=== PATIENT | female | born 1990 | race Caucasian/White ===

== ENCOUNTER 2018-01-03 11:31 | Emergency (ER) | payer BC, OTHER ==
--- OUTSIDE RECORDS SUMMARY | 2018-01-03 12:07 | XMS REPORT ---
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 Payers Type Date Identification Numbers Payment Provider Subscriber Health Maintenance Policy Number: BCBS Ppo Roel Stephens Organization (O) [id number] PayID: [id number] [facility] [id number] [place] [id number] Problems Date Description Provider Status Onset: 03/08/2011 Acne Maryanne Aragon MD Active Onset: 12/20/2016 History of dysplasia of cervix Maryanne Aragon MD Active Onset: 12/20/2016 Allergic rhinitis Maryanne Aragon MD Active Onset: 05/11/2011 Cervical intraepithelial neoplasia Maryanne Aragon MD Resolved grade 2 Resolved: 12/20/2016 Family History Date Family Member(s) Problem(s) Comments Father No Current Problems Mother No Current Problems Social History Type Date Description Comments Marital Status Single Marital Status Significant Other Lives With Boyfriend Occupation Currently Working [employer], [employer] ETOH Use Occasionally consumes alcohol Smoking Patient has never smoked Recreational Drug Use Denies Drug Use Daily Caffeine Consumes on average 1 soda per day Exercise Type/Frequency Exercises regularly [employer] membership Currently Active Patient is currently sexually active Age [address] [place] 17 Years Old Allergies, Adverse Reactions, Alerts Date Description Reaction Status Severity Comments 09/13/2005 Amoxicillin active Medications Medication Date Status Form Strength Qnty SIG Indications Ordering Provider Fluticasone 12/20/ Active Suspension 50mcg/Act 1unit 1 spray J30.9 [place] Propionate 2017 s each Maryanne maxwell nostril twice daily Vitamin D 01/30/ Active Tablets 1000Unit 100ta 1/2 by E55.9 Merlin 2014 bs mouth every Maryanne maxwell, day Folic Acid 11/17/ Active Tablets 400mcg 90tab 1 by mouth Merlin 2015 s every day Maryanne maxwell MD Trinessa (28) 11/02/ Active Tablets 0.18/0.215 28tab 1 by mouth Z30.41 Merlin 2014 /0.25 s daily Maryanne maxwell mg-35 mcg Vitamin B-12 10/29/ Active Tablets Sub 1000mcg 1 po daily Merlin 2013 with meal Maryanne maxwell MD Fluticasone 07/21/ Hx Suspension 50mcg/Act 1unit 1 spray J30.9 Digiovann Propionate 2016 - s each a, 12/20/ nostril Emily, 2016 daily 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 Benzonatate 01/30/ Hx Capsules 200mg 30cap 1 by mouth 461.9 Digiovann 2015 - s every 8 a, 02/09/ hours as Emily, 2014 needed for 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 cough, may cause drowsiness Doxycycline 01/30/ Hx Tablets DR 100mg 20tab 1 by mouth 461.9 Digiovann Hyclate 2014 - s every 12 a, 02/09/ hours for Emily, 2014 10 days, 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 take with food but not milk Vitamin D3 11/17/ Hx Chewtabs 2000Unit 1 by mouth 268.9 Merlin 2015 - daily with Maryanne maxwell, 01/30/ mark anthonyal 2014 Hair/Skin/Jillian 11/17/ Hx Tablets Merlin ls 2015 - Maryanne maxwell, 11/30/ 2016 Tri-Sprintec 10/06/ Hx Tablets 28tab 1 po daily Merlin 2012 - s Maryanne maxwell, 11/17/ 2014 Afrin 12 Hour 00/00/ Hx Solution 0.05% every day Unknown 0000 - in nostrils 12/20/ at bedtime 2017 and once during daytime as needed Immunizations CPT Code Status Date Vaccine Reaction Lot # [id number] Given 08/24/2017 Tdap (Adacel) Ages 7 And GIVEN AT CONVENIENT CARE Above Only 97645 Given 05/11/2011 Menactra/Menveo Meningococcal Vaccine 87224 Given 10/05/2009 Tdap (Adacel) Ages 7 And Above Only 41176 Given 10/05/2009 Afluria Or Fluvirin Flu Vac Intramuscular 63053 Given 10/05/2009 Administration Swine Flu Vaccine H1N1 40737 Given 04/21/2009 Menactra/Menveo Meningococcal Vaccine 83577 Given 01/17/2008 HPV Vaccine (Gardasil) 3 Dose Schedule 07223 Given 09/11/2007 HPV Vaccine (Gardasil) 3 Dose Schedule 27334 Given 07/12/2007 HPV Vaccine (Gardasil) 3 Dose Schedule 00693 Given 05/03/2006 Tetanus And Diptheria Toxoids For Adult Use-preservative free 82739 Given 06/03/2003 Hepatitis B Vac Adolescent 2 Dose Schedule 05783 Given 12/06/2002 Hepatitis B Vac Adolescent 2 Dose Schedule 77566 Given 12/06/2002 Hepatitis B Vac Adolescent 2 Dose Schedule 27491 Given 06/11/2000 Hepatitis B Vac Adolescent 2 Dose Schedule 16679 Given 05/20/1996 IPV / Poliomyelitis Immunization 58843 Given 05/20/1996 DTaP Immunization 7 Yrs & Younger 37876 Given 05/20/1996 DTaP Immunization 7 Yrs & Younger 47189 Given 05/20/1996 MMR Virus Immunization 78091 Given 01/24/1993 IPV / Poliomyelitis Immunization 28006 Given 01/24/1993 DTaP Immunization 7 Yrs & Younger 12091 Given 10/28/1992 MMR Virus Immunization 81955 Given 10/28/1992 Hib ACTHiB Vaccine 4 Dose Schedule 61687 Given 01/30/1992 DTaP Immunization 7 Yrs & Younger 58235 Given 01/30/1992 Hib ACTHiB Vaccine 4 Dose Schedule 63737 Given 1991 IPV / Poliomyelitis Immunization 99773 Given 1991 DTaP Immunization 7 Yrs & Younger 08410 Given 1991 Hib ACTHiB Vaccine 4 Dose Schedule 46510 Given 1991 IPV / Poliomyelitis Immunization 59905 Given 1991 DTaP Immunization 7 Yrs & Younger 13443 Given 1991 Hib ACTHiB Vaccine 4 Dose Schedule 04476 Refused 12/20/2016 Influenza Virus Vaccine,Quadrivalent,Split,Preserv Free 3 Yrs+ 61101 Refused 11/30/2015 Influenza Virus Vaccine,Quadrivalent,Split,Preserv Free 3 Yrs+ Vital Signs Date Vital Result Comment 12/21/2017 Body Temperature 99.8 F tympanic Weight 178.50 lb Heart Rate 80 /min BP Systolic 128 mmHg BP Diastolic 78 mmHg Respiratory Rate 18 /min Height 63.5 inches 5'3.50" 12/20/17 SA O2 % BldC Oximetry 98 % On room air BMI (Body Mass Index) 31.1 kg/m2 12/20/2016 Weight 179.25 lb Heart Rate 84 /min BP Systolic 128 mmHg BP Diastolic 80 mmHg Respiratory Rate 14 /min Height 63.5 inches 5'3.50" 12/20/16 SA BMI (Body Mass Index) 31.3 kg/m2 07/21/2016 Weight 181.00 lb BP Systolic 134 mmHg BP Diastolic 80 mmHg Height 63.5 inches 5'3.50" BMI (Body Mass Index) 31.6 kg/m2 11/30/2015 Weight 169.00 lb Heart Rate 74 /min BP Systolic 110 mmHg BP Diastolic 60 mmHg Respiratory Rate 18 /min Height 63.5 inches 5'3.50" BMI (Body Mass Index) 29.5 kg/m2 01/30/2015 Body Temperature 98.3 F Weight 152.00 lb Heart Rate 76 /min BP Systolic 120 mmHg BP Diastolic 80 mmHg Respiratory Rate 18 /min Height 63.5 inches 5'3.50" O2 % BldC Oximetry 98 % Ra BMI (Body Mass Index) 26.5 kg/m2 11/17/2014 Weight 154.00 lb Heart Rate 72 /min BP Systolic 120 mmHg BP Diastolic 80 mmHg Respiratory Rate 18 /min Height 63.5 inches 5'3.50" BMI (Body Mass Index) 26.8 kg/m2 10/27/2013 Weight 145.00 lb Heart Rate 82 /min BP Systolic 120 mmHg BP Diastolic 68 mmHg Respiratory Rate 16 /min Height 63.5 inches 5'3.50" 10/24/2012 Weight 147.00 lb Heart Rate 94 /min BP Systolic 130 mmHg BP Diastolic 84 mmHg Respiratory Rate 16 /min Height 63.2 inches 5'3.20" 04/22/2012 Weight 150.00 lb Heart Rate 84 /min BP Systolic 120 mmHg BP Diastolic 70 mmHg Respiratory Rate 16 /min 10/20/2011 Weight 144.00 lb Heart Rate 78 /min BP Systolic 108 mmHg BP Diastolic 68 mmHg Respiratory Rate 17 /min Height 64 inches 5'4" 05/11/2011 Weight 143.00 lb Heart Rate 68 /min BP Systolic 110 mmHg L/Adult BP Diastolic 70 mmHg L/Adult Respiratory Rate 17 /min Height 64 inches 5'4" 03/08/2011 Weight 140.00 lb Heart Rate 72 /min BP Systolic 110 mmHg R/Adult BP Diastolic 60 mmHg R/Adult Respiratory Rate 17 /min Height 64 inches 5'4" 11/18/2010 Heart Rate 88 /min BP Systolic 100 mmHg R/Adult BP Diastolic 58 mmHg R/Adult Respiratory Rate 17 /min Height 136 inches 11'4" 10/28/2010 Weight 140.00 lb Heart Rate 84 /min BP Systolic 120 mmHg BP Diastolic 68 mmHg Respiratory Rate 16 /min 10/28/2010 Heart Rate 88 /min BP Systolic 110 mmHg BP Diastolic 60 mmHg 10/19/2010 Weight 137.00 lb Heart Rate 60 /min BP Systolic 110 mmHg BP Diastolic 60 mmHg Height 64.6 inches 5'4.60" 05/25/2010 Weight 131.00 lb Heart Rate 80 /min BP Systolic 108 mmHg LEFT BP Diastolic 62 mmHg LEFT Respiratory Rate 16 /min 05/13/2010 Body Temperature 98.6 F Weight 131.00 lb Heart Rate 75 /min BP Systolic 100 mmHg BP Diastolic 72 mmHg 03/22/2010 Weight 134.00 lb Heart Rate 72 /min BP Systolic 122 mmHg LEFT BP Diastolic 72 mmHg LEFT Respiratory Rate 16 /min Height 63 inches 5'3" 10/22/2009 Weight 133.00 lb Heart Rate 68 /min BP Systolic 100 mmHg BP Diastolic 60 mmHg Respiratory Rate 15 /min 10/12/2009 Weight 132.00 lb Heart Rate 60 /min BP Systolic 112 mmHg BP Diastolic 62 mmHg Respiratory Rate 16 /min 10/05/2009 Weight 131.00 lb Heart Rate 78 /min BP Systolic 116 mmHg BP Diastolic 60 mmHg Respiratory Rate 16 /min 04/21/2009 Weight 133.00 lb Heart Rate 70 /min BP Systolic 102 mmHg BP Diastolic 68 mmHg Respiratory Rate 14 /min 01/30/2009 Body Temperature 99.5 F Weight 136.00 lb BP Systolic 110 mmHg BP Diastolic 70 mmHg 01/27/2009 Weight 135.00 lb Heart Rate 60 /min BP Systolic 110 mmHg BP Diastolic 60 mmHg Respiratory Rate 14 /min 12/18/2008 Weight 136.00 lb Heart Rate 66 /min BP Systolic 120 mmHg BP Diastolic 70 mmHg Respiratory Rate 16 /min 09/30/2008 Weight 139.00 lb Heart Rate 84 /min BP Systolic 110 mmHg BP Diastolic 68 mmHg Respiratory Rate 14 /min Height 64 inches 5'4" 01/03/2008 Weight 146.19 lb Heart Rate 80 /min BP Systolic 100 mmHg BP Diastolic 66 mmHg Respiratory Rate 14 /min 12/09/2007 Weight 146.00 lb Height 63 inches 5'3" 12/03/2007 Weight 146.00 lb Heart Rate 64 /min BP Systolic 114 mmHg BP Diastolic 60 mmHg Respiratory Rate 18 /min 10/22/2007 Weight 143.00 lb Heart Rate 82 /min BP Systolic 122 mmHg BP Diastolic 64 mmHg Respiratory Rate 16 /min 07/12/2007 Weight 148.19 lb Heart Rate 80 /min BP Systolic 112 mmHg BP Diastolic 58 mmHg Respiratory Rate 16 /min Height 63 inches 5'3" 05/03/2006 Weight 146.31 lb Heart Rate 76 /min BP Systolic 110 mmHg BP Diastolic 72 mmHg Respiratory Rate 18 /min Height 62.5 inches 5'2.50" 10/11/2005 Weight 139.00 lb Heart Rate 68 /min BP Systolic 114 mmHg BP Diastolic 60 mmHg Respiratory Rate 16 /min 09/13/2005 Weight 138.00 lb Heart Rate 70 /min BP Systolic 126 mmHg BP Diastolic 70 mmHg Respiratory Rate 16 /min Results Test Date Test Result H/L Range Note Laboratory test finding 12/20/2016 Pap Smear Thin Prep ok 1 GC/Chlamydia By Dna 12/20/2016 Chlamydia by Dna Probe NEGATIVE Negative Probe GC by Dna Probe NEGATIVE Negative GC/Chlamydia By Dna Probe 11/30/2015 C. Trachomatis NEGATIVE (Neg) 2 N. Gonorrhoeae NEGATIVE (Neg) 3 Comment IMPORTANT REM <SEE NOTE> 4 Laboratory test finding 11/30/2015 Pap Smear Thin Prep ok 5 Laboratory test finding 11/30/2015 Vitamin B12 554 pg/mL (193-986) 6, 7 CBC With Auto Diff 11/30/2015 WBC 5.5 10*3/uL (4.1-11.0) 6 RBC 4.84 10*6/uL (4.00-5.40) 6 HGB 14.9 g/dL (12.0-16.0) 6 HCT 43.5 % (36.0-47.0) 6 MCV 89.9 fL (80.0-95.0) 6 MCH 30.8 pg (27.0-32.0) 6 MCHC 34.2 g/dL (32.0-36.0) 6 RDW 13.0 % (10.5-14.5) 6 PLT 306 10*3/uL (150-450) 6 MPV 8.4 fL (7.1-10.7) 6 Neut % 48.6 % (35.0-75.0) 6 Lymph % 41.0 % (16.0-52.0) 6 [place] % 7.6 % (0.0-8.0) 6 Eos % 2.6 % (0.0-5.0) 6 Baso % 0.2 % (0.0-4.0) 6 Neut # 2.7 10*3/uL (1.8-7.7) 6 Lymph # 2.3 10*3/uL (1.2-4.8) 6 [place] # 0.4 10*3/uL (0.0-0.8) 6 Eos # 0.1 10*3/uL (0.0-0.5) 6 Baso # 0.0 10*3/uL (0.0-0.2) 6, 8 Lipid 11/30/2015 Cholesterol @ 212 mg/dL High (0-200) 6 Triglyceride @ 106 mg/dL (30-200) 6 HDL Cholesterol @ 63 mg/dL (>40) 6, 9 Chol/HDL Ratio 3.4 RATIO 6, 10 LDL Chol (Calc) 128 mg/dL (<130) 6, 11 Laboratory test finding 11/30/2015 Vit D,25 Hydroxy 47 ng/mL (31-100) 6 , 12 Basic (BMP) 11/30/2015 Sodium 141 mmol/L (136-145) 6 Potassium 4.1 mmol/L (3.6-5.2) 6 Chloride 108 mmol/L (100-108) 6 Co2 25 mmol/L (22-31) 6 Anion Gap 8 mmol/L (7-16) 6 Urea Nitrogen 10 mg/dL (7-24) 6 Creatinine 0.67 mg/dL (0.60-1.00) 6 BUN/Creat Ratio 14.9 RATIO (10.0-20.0) 6 Glucose 76 mg/dL (70-99) 6 Calcium 8.9 mg/dL (8.4-10.2) 6 GFR >60 ml/min/1.73m2 (>59) 6 GFR ( Amer) >60 ml/min/1.73m2 (>59) 6 GFR Interpretation (SEE NOTE) 6, 13 Laboratory test 11/30/2015 TSH 1.980 mIU/L (0.360-4.170) 6, 14 finding GC/Chlamydia By Dna 11/18/2014 Chlamydia by Dna NEGATIVE Negative Probe Probe GC by Dna Probe NEGATIVE Negative Laboratory test finding 11/17/2014 Pap Smear Thin Prep ok 15 CBC With Auto Diff 11/17/2014 WBC 5.6 K/uL 4.1-11.0 16 RBC 4.64 M/uL 4.00-5.40 16 Hemoglobin 14.5 gm/dL 12.0-16.0 16 Hematocrit 42.8 % 36.0-47.0 16 MCV 92.1 fL 80.0-97.0 16 MCH 31.1 pg 27.0-32.0 16 MCHC 33.8 g/dL 32.0-36.0 16 RDW 12.5 % 11.5-14.5 16 PLT Count 333 K/ul 140-400 16 Neutrophil 47.8 % 35.0-75.0 16 Lymphocyte 42.6 % 16.0-52.0 16 Monocyte 7.4 % 2.0-10.0 16 Eosinophil 1.6 % 0.0-5.0 16 Basophil 0.6 % 0.0-4.0 16 Abs Neutrophils 2.7 K/uL 2.1-8.0 16 Abs Lymphocytes 2.4 K/uL 0.8-5.5 16 Abmon 0.4 K/uL 0.1-1.0 16 Abs Eosinophils 0.1 K/uL 0.0-0.5 16 Abs Basophils 0.0 K/uL 0.0-0.3 16 Laboratory test finding 11/17/2014 TSH 2.22 uIU/mL 0.34-5.60 16 Vitamin B12 839 pg/mL 180-914 16 Vit D,25 Hydroxy 100 ng/mL 31-100 16 Comprehensive Metabolic (CMP) 11/17/2014 Sodium 137 mmol/L 134-142 16 Potassium 4.2 mmol/L 3.5-5.2 16 Chloride 103 mmol/L 97-109 16 Carbon Dioxide 27 mmol/L 24-34 16 Glucose 77 mg/dL 70-105 16 BUN 12 mg/dL 6-26 16 Creatinine 0.7 mg/dL 0.5-1.4 16 Calcium 9.5 mg/dL 8.5-10.2 16 Total Protein 7.0 g/dL 6.0-8.0 16 Albumin 4.4 g/dL 3.6-4.9 16 Globulin 2.6 g/dL 2.0-3.5 16 A/G Ratio 1.7 Ratio 1.0-2.2 16 Total Bilirubin 0.4 mg/dL 0.1-1.3 16 Alkaline Phosphatase 52 U/L 24-140 16 Alt 10 U/L 3-42 16 Ast 14 U/L 8-42 16 Anion Gap 11 mmol/L 6-14 16 Giuliana Egfr >60 >60 16, 17 Non Giuliana Egfr >60 >60 16, 18 Laboratory test finding 12/30/2013 Ferritin 13.0 ng/mL 3-105 Serum Iron 92 g/dL 25-156 Total Iron Binding Capacity 457 g/dL High 245-419 Transferrin %Saturation 20 % 12-57 Vitamin B12 589.0 pg/mL 200.0-900.0 Laboratory test finding 11/27/2013 Serum Iron 158 g/dL High 25-156 19 Laboratory test finding 10/28/2013 Cytology Pap ok 20 GC / Chlamydia neg neg 21 Lipid Panel 10/27/2013 Chol/HDL Ratio 4.2 ratio Cholesterol 211.0 mg/dL High 50.0-199.0 HDL 50.0 mg/dL 29.0-86.0 LDL, Calculated 129.2 mg/dL High 20.0-129.0 Triglycerides 159.0 mg/dL 30.0-249.0 vLDL 31.8 ng/dL Laboratory test finding 10/27/2013 % Baso. 1.8 % 0.0-2.0 % Eos. 1.9 % 0.0-4.0 % Lymph 45 % High 20-44 % [place] 7.6 % 2.0-10.0 % Neil 44 % Low 50-70 Absolute Baso. 0.1 K/ul 0.0-0.3 Absolute Eos. 0.1 K/ul 0.0-0.5 Absolute Lymph. 2.0 K/ul 0.8-4.8 Absolute [place]. 0.3 K/ul 0.1-1.0 Absolute Neil. 1.89 K/ul Low 2.05-7.63 HCT 44.3 % 37.0-51.0 HGB 14.7 Gm/dl 12.0-16.0 MCH 30.6 pg 26.0-32.0 MCHC 33.2 g/dL 31.0-36.0 MCV 92.1 Fl 80.0-97.0 MPV 6.7 fL 6.0-10.0 PLT 339 K/ul 140-440 RBC 4.8 M/ul 4.2-6.3 RDW 11.8 % 11.5-14.5 Serum Iron 174 g/dL High 25-156 22 Vitamin B12 378.0 pg/mL 200.0-900.0 Vitamin D 28.7 ng/mL Low 30.0-100.0 WBC 4.3 K/ul 4.1-10.9 Laboratory test finding 10/24/2012 Cytology Pap ok, susan 23 GC / Chlamydia neg neg 24 Laboratory test finding 04/23/2012 Cytology Pap See Note ascus hpv neg 25 GC / Chlamydia See Note neg neg 26 Laboratory test finding 10/20/2011 Cytology Pap See Note ascus 27 HPV See Note high risk neg 28 Laboratory test finding 05/11/2011 Cytology Pap See Note ascus 29 GC / Chlamydia See Note neg neg 30 HPV See Note pos 31 Surgical Pathology See Note Low inflammation, nodysp 32 Laboratory test 10/31/2010 Surgical Pathology See Note moderate dysplasia 33 finding Laboratory test 10/19/2010 Charity Species See Note neg 34, 35 finding Culture Urine See Note 34, 36 Cytology Pap See Note annemarie I, hgsil 34, 37 GC / Chlamydia See Note neg neg 34, 38 Gardnerella Vaginalis See Note pos 34, 39 Trichomonas Vaginalis See Note neg 34, 40 Urine Amorph Sediment Large Negative 34 Urine Bacteria Few None Seen 34 Urine Epithelial Cells Very Few None Seen 34 Urine RBC None Seen rbc/hpf 0-7 34 Urine WBC 0-2 wbc/hpf 0-7 34 Absolute Basophils 0.087 K/ul 0.0-0.3 34 Absolute Eosinophils 0.094 K/ul 0.0-0.5 34 Absolute Lymphocytes 2.21 K/ul 0.8-4.8 34 Absolute Monocytes 0.379 K/ul 0.1-1.0 34 Absolute Neutrophils 1.66 K/ul Low 2.05-7.63 34 Basophil 2.0 % 0-2 34 Eosinophil 2.1 % 0-4 34 Hematocrit 41.1 % 37.0-51.0 34 Hemoglobin 15.0 GM/dl 12.0-16.0 34 Lymphocytes 49.9 % High 20-44 34 MCH 32.1 pg High 26.0-32.0 34 MCHC 36.5 g/dL High 31.0-36.0 34 MCV 88 FL 80-97 34 Monocytes 8.6 % 2-10.0 34 Neutrophils 37.5 % Low 50-70 34 Platelet Count 363 K/ul 140-440 34 RBC 4.67 M/ul 4.2-6.3 34 RDW 12.1 % 11.5-14.5 34 Vitamin D,25-Hydroxy 32.3 ng/mL 32.0-100.0 34, 41 WBC 4.4 K/ul 4.1-10.9 34 Laboratory test finding 03/22/2010 GC / Chlamydia neg neg 42 Laboratory test finding 10/12/2009 Hepatitis B Surface Antibody 107.7 mIU/ mL 10- 43 Hepatitis B Surface Antigen Negative Negative 44 Hepatitis C Antibody Nonreactive Nonreactive Rapid Plasma Reagin Nonreactive Nonreactive 45 Signal/Cutoff ratio 0.28 <0.80 46 Dna Probe N. Gono + C. 10/05/2009 Dna Probe For Chlamydia Trac. See Note 47 Trach. Dna Probe N. Gono + C. Trach. See Note chlamydia pos 48 GC Probe See Note gonorrhea neg 49 Laboratory test finding 10/05/2009 Charity Species neg 50 Gardnerella Vaginalis pos 51 Trichomonas Vaginalis neg 52 Laboratory test finding 01/28/2009 Culture Throat Normal Throat FL 53 <See Note> Laboratory test finding 12/18/2008 HCG Serum, Qualitative Negative Test, Urine neg Laboratory test finding 09/30/2008 Charity Species nrg 54, 55 Chlamydia And Gonorrhea PCR Canceled By Lab 54, 56 Gardnerella Vaginalis Positive For Gar <See Note> 54, 57 Trichomonas Vaginalis Negative For Tri <See Note> 54, 58 Dna Probe N. Gono + C. 09/30/2008 Dna Probe For Chlamydia Trac. neg 54 , 59 Trach. Dna Probe For N. Gonorrhoeae neg 54, 60 Laboratory test finding 01/03/2008 Test, Urine pos Laboratory test finding 12/09/2007 Charity Species <see comment> 61 Gardnerella Vaginalis Positive For Gar <See Note> 62 Trichomonas Vaginalis Negative For Tri <See Note> 63 Dna Probe N. Gono + C. 12/09/2007 Dna Probe For Chlamydia <see comment&gt ; 64 Trach. Trac. Dna Probe For N. Gonorrhoeae <see comment> 65 Laboratory test finding 12/03/2007 Test, Urine pos Laboratory test finding 07/12/2007 A/G Ratio 1.6 1.0-2.2 66 Albumin 4.9 g/dL 3.5-5.0 66 Alkaline Phosphatase 104 U/L 38-126 66 Alt 24 U/L 9-52 66 Ast 25 U/L 14-36 66 BUN 13 mg/dL 7-18 66 BUN/CR Ratio 16.9 Ratio 12-20 66 Calcium 9.5 mg/dL 8.7-10.5 66 Carbon Dioxide 21 mmol/L Low 22-30 66 Chloride 105 mmol/L 98-107 66 Creatinine, Serum 0.8 mg/dL 0.7-1.2 66 Globulin 3.0 g/dL 2.7-4.3 66 Glucose 81 mg/dL 65-105 66 Potassium 4.2 mmol/L 3.6-5.0 66 Sodium 140 mmol/L 137-145 66 TSH 0.855 uIU/ml 0.50-6.00 66 Total Bilirubin 0.4 mg/dL 0.2-1.3 66 Total Protein 7.9 g/dL 6.3-8.2 66 Bas% 0.7 % 0.1-1.0 66 Baso # 0.1 K/uL 0.1-0.2 66 Eo% 1.3 % 0.0-5.0 66 Eos # 0.1 K/uL 0.0-0.5 66 Ferritin 30.0 ng/mL 3-105 66 Hematocrit 42.1 % 36.0-46.0 66 Hemoglobin 14.7 gm/dL 12.0-16.0 66 Misael# 0.1 0.0-1.5 66 Misael% 1.4 % 0.0-4.0 66 Lymph # 2.5 K/uL 1.2-4.0 66 Lymph % 31.4 % 17.0-56.0 66 Mean Cell Volume 90.9 fL 77.0-95.0 66 Mean Corpuscular HGB 31.8 pg High 25.0-30.0 66 Mean Corpuscular HGB Conc 35.0 g/dL 31.7-36.0 66 Mean Platelet Volume 7.0 fl 6.6-10.6 66 [place] # 0.4 K/uL 0.0-0.6 66 [place] % 5.1 % 0.0-10.0 66 Neut# 4.7 K/uL 1.8-7.0 66 Neut% 60.2 % 28.0-68.0 66 Platelet Count 361 K/uL 150-400 66 Red Blood Count 4.63 M/uL 4.10-5.10 66 Red Cell Distri Width %CV 12.5 % 11.6-15.8 66 Serum Iron 95 g/dL 25-156 66 Total Iron Binding Capacity 368 g/dL 245-419 66 Transferrin %Saturation 26 % 12-57 66 White Blood Count 7.9 K/uL 4.5-13.5 66 1 [facility], [facility]. [address] [place] [address] CYTOLOGY REPORT Source of Specimen(s): Thin Prep Cervical / Endocervical Pap Smear - One Vial Date of Last Menstrual Period: 11/29 Dysplasia / Cancer History: History of Dysplasia: ANNEMARIE II Other Clinical Conditions: Last Pap Smear: 2015 ok REFLEX TO HPV ASSAY IF RESULTS OF THIS PAP ARE ASCUS Specimen Adequacy SATISFACTORY FOR EVALUATION PRESENCE OF ENDOCERVICAL/TRANSFORMATION ZONE COMPONENT General Categorization NEGATIVE FOR INTRAEPITHELIAL LESION OR MALIGNANCY Interpretation NEGATIVE FOR INTRAEPITHELIAL LESION OR MALIGNANCY Reported: 12/22/2016 14:29 Electronically Signed Out By Janae Buckner MS,SCT(ASCP)([facility]) [facility] [address] CT(ASCP) [facility] ICD9 Code: Z87.410 QC Reviewed: Y Unless otherwise specified, testing performed by [facility] [employer] [address] 2 SOURCE - URINE, COLLECTION METHOD NOT SPECIFIED BY AMPLIFIED DNA PROBE PERFORMED BY [place] [address] 3 SOURCE - URINE, COLLECTION METHOD NOT SPECIFIED BY AMPLIFIED DNA PROBE PERFORMED BY [place] [address] 4 IMPORTANT REMINDERS ABOUT URINE SPECIMEN COLLECTION THE PATIENT SHOULD NOT HAVE URINATED FOR AT LEAST ONE HOUR PRIOR TO COLLECTION. FEMALE PATIENTS SHOULD NOT CLEANSE PRIOR TO COLLECTING URINE SPECIMENS THIS MAY INTERFERE WITH THE TEST. THE PATIENT SHOULD PROVIDE 20-30 ML OF THE INITIAL URINE STREAM INTO A CONTAINER WITHOUT PRESERVATIVES. Unless otherwise specified, testing [facility] [place] [address] 5 [facility]. [address] [place] [address] GYNECOLOGIC CYTOLOGY REPORT Accession Number: [id number] Source of Specimen(s): A: Thin Prep Vaginal / Cervical Pap Smear - One Vial Clinical Diagnosis and History: Date of Last Menstrual Period: 11/01 Dysplasia / Cancer History: History of Dysplasia: ANNEMARIE II Other Clinical Conditions: Last Pap Smear: 11/30 neg REFLEX TO HPV ASSAY IF RESULTS OF THIS PAP ARE ASCUS Specimen Adequacy Satisfactory for evaluation Presence of endocervical/transformation zone component General Categorization Negative for intraepithelial lesion or malignancy Interpretation NEGATIVE FOR INTRAEPITHELIAL LESION OR MALIGNANCY Acute inflammatory cells Reported: 12/02/2015 Electronically Signed Out By Janae Buckner SCT(ASCP)([facility]) [place] A Driver: Morelia CHISHOLM(ASCP) [facility] QC Reviewed: Y Unless otherwise specified, testing performed by for; to (do) Centers [facility] [address] [place] [address] 6 today letter weigth gain 7 Unless otherwise specified, testing performed by for; to (do) Centers [facility] [address] [place] [id number] 8 Unless otherwise specified, testing performed [facility] [place] [place] [address] 9 PER NCEP ATP III GUIDELINES: RESULTS LOWER THAN 40 MG/DL ARE SUGGESTIVE OF INCREASED RISK FOR CORONARY ARTERY DISEASE. RESULTS > OR=TO 60 MG/DL ARE CONSIDERED A NEGATIVE RISK FACTOR. 10 INTERPRETATION OF CHOL-HDL RATIO CHD RISK FEMALE MALE VERY HIGH >8.3 >14.3 HIGH 5.6- 8.3 6.7- 14.3 AVERAGE 3.7- 5.6 4.0- 6.7 BELOW AVERAGE 2.5- 3.7 2.7- 4.0 PROTECTED <2.5 <2.7 11 PER NCEP ATP III GUIDELINES: OPTIMAL < 100 NEAR OPTIMAL 100 - 129 BORDERLINE HIGH 130 - 159 HIGH 160 - 189 VERY HIGH > 189 Unless otherwise specified, testing performed by [facility] [place] [address] 12 A REVIEW OF THE LITERATURE SUGGESTS THE FOLLOWING RANGES FOR THE CLASSIFICATION OF 25-OH VITAMIN D STATUS: VITAMIN D STATUS 25-OH VITAMIN D DEFICIENCY <20 NG/ML INSUFFICIENCY 20-30 NG/ML SUFFICIENCY 31 - 100 NG/ML TOXICITY > 100 NG/ML A PEDIATRIC REFERENCE RANGE HAS NOT BEEN ESTABLISHED USING THIS METHOD. Unless otherwise specified, testing performed by [facility] [place] [address] 13 NORMAL KIDNEY FUNCTION OR MILD DISEASE - GFR >OR=60 CHRONIC KIDNEY DISEASE - GFR 15 - 59 RENAL FAILURE - GFR <15 Est. GFR calculation based on the MDRD study equation, which assumes a steady state for creatinine. Est. GFR should not be used for medication dosing. Unless otherwise specified, testing performed by [facility] [place] [address] 14 Unless otherwise specified, testing performed by [facility] [place] [id number] 15 [facility]. [address] [place] [id number] GYNECOLOGIC CYTOLOGY REPORT Accession Number: [id number] Source of Specimen(s): A: Thin Prep Cervical / Endocervical Pap Smear - One Vial Clinical Diagnosis and History: Date of Last Menstrual Period: 11/04 Other Clinical Conditions: Last Pap Smear: 10/28 Clear Path normal Specimen Adequacy Satisfactory for evaluation Presence of endocervical/transformation zone component General Categorization Negative for intraepithelial lesion or malignancy Interpretation NEGATIVE FOR INTRAEPITHELIAL LESION OR MALIGNANCY Acute inflammatory cells Reported: 11/19/2014 Electronically Signed Out By Morelia CHISHOLM(ASCP) [facility] dol Unless otherwise specified, testing performed by for; to (do) Centers [address] [address] 16 toaday letter 17 Concerning GFR Guidelines for Americans: Normal function or mild renal disease, if clinically at risk: >/=60 mL/min Moderately decreased: 30-59 Severely decreased: 15-29 Renal failure: <15 18 Concerning GFR Guidelines: Normal function or mild renal disease, if clinically at risk: >/=60 mL/min Moderately decreased: 30-59 Severely decreased: 15-29 Renal failure: <15 Glomerular Filtration Rate (GFR) is estimated based on the MDRD equation, which assumes a steady state for creatinine as recommended by the National Kidney Disease Education Program in conjunction with the National Institutes of Health and the National Kidney Foundation. Clinical conditions in which it may be necessary to measure GFR by using clearance methods include extremes of age and body size, severe malnutrition or obesity, diseases of skeletal muscle, paraplegia or quadriplegia, vegetarian diet, rapidly changing kidney function, and calculation of the dose of potentially toxic drugs that are excreted by the kidneys. 19 in 1 mo, 177 tri 10/29 QUERY: Is the Patient Fasting? N 20 Cytology Laboratory [address] [facility], [address] [place] [address] CYTOLOGY REPORT Name: Roel Stephens : 1990 (Age: 23) Sex: F Location: [facility] Med. Rec. # [id number] Date Collected: 10/28/2013 Billing #: [id number] Date Received: 10/28/2013 Requisition # [id number] Physician(s): MARYANNE ARAGON MD Source of Specimen: ENDOCERVICAL/ECTOCERVICAL THIN PREP Clinical Information: Date of Last Menstrual Period: 10/08 Hormonal History: OCPs Treatment History: Colposcopy: 10/2010 ANNEMARIE 2 Specimen Adequacy: SATISFACTORY FOR EVALUATION. ADEQUATE ENDOCERVICAL/TRANSFORMATION ZONE. General Categorization: NEGATIVE FOR INTRAEPITHELIAL LESION OR MALIGNANCY. dcl Electronic Signature Radha Blackwell CT (ASCP) Reported: 10/30/2013 Also seen by :IAN Francis ( ASCP) [facility] Technical Laboratory [facility] ICD-9 Code(s) 622.12 V72.31 21 Special Testing Laboratory [address] [facility], [address] [place] [address] GC / CHLAMYDIA REPORT Name: Roel Stephens : 1990 (Age: 23) Sex: F Location: [facility]. Rec. # [id number] Date Collected: 10/28/2013 Billing #: [id number] Date Received: 10/28/2013 Requisition # [id number] Physician(s): MARYANNE ARAGON MD Source of Specimen: ThinPrep, APTIMA Results: Neisseria gonorrhoeae NEGATIVE Chlamydia trachomatis NEGATIVE Comment: This analysis was performed using second generation nucleic acid amplification testing (NAAT). Reported: 10/29/2013 Electronic Signature ian Sandoval [facility] ICD-9 Codes: 622.12 22 letter QUERY: Is the Patient Fasting? N 23 Cytology Laboratory [address] [facility], [address] [place] [address] CYTOLOGY REPORT Name: Roel Stephens : 1990 (Age: 22) Sex: F Location: [facility]. Rec. # [id number] Date Collected: 10/24/2012 Billing #: [id number] Date Received: 10/24/2012 Requisition # [id number] Physician(s): MARYANNE ARAGON MD Source of Specimen: ENDOCERVICAL/ECTOCERVICAL THIN PREP Clinical Information: Date of Last Menstrual Period: 10/13 Menstrual History: Regular Dysplasia/Cancer History: HSIL ASC-US Specimen Adequacy: SATISFACTORY FOR EVALUATION. ADEQUATE ENDOCERVICAL/TRANSFORMATION ZONE. General Categorization: NEGATIVE FOR INTRAEPITHELIAL LESION OR MALIGNANCY. Descriptive Evaluation: REACTIVE CELLULAR CHANGES ASSOCIATED WITH INFLAMMATION. FUNGAL ORGANISMS MORPHOLOGICALLY CONSISTENT WITH CHARITY SP. abbie Electronic Signature Paul Shannon MD Reported: 10/28/2012 Also seen by: Radha Blackwell, CT (ASCP) IAN Rowan ( ASCP) Cytology Outreach [facility] ICD-9 Code(s) V72.31 622.12 A: 616.9 112.1 24 Special Testing Laboratory [address] [facility], [address] [place] [address] GC / CHLAMYDIA REPORT Name: Roel Stephens : 1990 (Age: 22) Sex: F Location: [facility] Med. Rec. # [id number] Date Collected: 10/24/2012 Billing #: [id number] Date Received: 10/24/2012 Requisition # [id number] Physician(s): MARYANNE ARAGON MD Source of Specimen: ThinPrep, APTIMA Results: Neisseria gonorrhoeae NEGATIVE Chlamydia trachomatis NEGATIVE Comment: This analysis was performed using second generation nucleic acid amplification testing (NAAT). Reported: 10/25/[address] Yennifer [facility] Technical Laboratory [facility] ICD-9 Codes: A: 622.12 25 Cytology Laboratory [address], [address] [place] [address] CYTOLOGY REPORT Name: Roel Stephens : 1990 (Age: 21) Sex: F Location: [facility] Med. Rec. #: [id number] Date Collected: 04/23/2012 Billing #: [id number] Date Received: 04/23/2012 Requisition # [id number] Physician(s): MARYANNE ARAGON MD Source of Specimen: ENDOCERVICAL/ECTOCERVICAL THIN PREP Clinical Information: Date of Last Menstrual Period: 04/06 Menstrual History: Regular Dysplasia/Cancer History: Dysplasia: ANNEMARIE 2 ASC-US Specimen Adequacy: SATISFACTORY FOR EVALUATION. ADEQUATE ENDOCERVICAL/TRANSFORMATION ZONE. General Categorization: SQUAMOUS ABNORMALITY Descriptive Evaluation: ATYPICAL SQUAMOUS CELLS OF UNDETERMINED SIGNIFICANCE (ASC-US). jib Electronic Signature Paul Shannon MD Reported: 04/25 Also seen by: IAN Blankenship (ASCP) Cytology Outreach [facility] HPV High Risk Date Ordered: 04/25/2012 Status: Signed Out Date Reported: 04/26/2012 High Risk NEGATIVE (HPV types 16, 18, 31, 33, 35, 39, 45, 51, 52, 56, 58, 59, 66, 68) Cervista HPV HR Electronic Signature Yennifer Sandoval Cytology Outreach [facility] ICD-9 Code(s) 622.12 A: 795.01 26 Special Testing Laboratory [address] [facility], [address] [place] [address] GC / CHLAMYDIA REPORT Name: Roel Stephens : 1990 (Age: 21) Sex: F Location: [facility] Soc. Sec. #: [id number] Date Collected: 04/23/2012 Billing #: [id number] Date Received: 04/23/2012 Med. Rec. # [id number] Requisition # [id number] Physician (s): MARYANNE ARAGON MD Source of Specimen: ThinPrep, APTIMA Results: Neisseria gonorrhoeae NEGATIVE Chlamydia trachomatis NEGATIVE Comment: This analysis was performed using second generation nucleic acid amplification testing (NAAT). Reported: 04/24/[address] Yennifer Sandoval [facility] Outreach Technical Laboratory [facility] ICD-9 Codes: 622.12 27 Cytology Laboratory [address], [address] [place] [address] CYTOLOGY REPORT Name: Roel Stephens : 1990 (Age: 21) Sex: F Location: [facility] Soc. Sec. #: [phone] Date Collected: 10/20/2011 Billing #: [id number] Date Received: 10/23/2011 Med. Rec. #: [id number] Requisition # [id number] Physician(s): MARYANNE ARAGON MD Source of Specimen: ENDOCERVICAL/ECTOCERVICAL THIN PREP Clinical Information: Date of Last Menstrual Period: 10/13 Menstrual History: Regular Hormonal History: OCPs Dysplasia/Cancer History: HSIL: ANNEMARIE 2 Specimen Adequacy: SATISFACTORY FOR EVALUATION. ADEQUATE ENDOCERVICAL/TRANSFORMATION ZONE. General Categorization : SQUAMOUS ABNORMALITY Descriptive Evaluation: ATYPICAL SQUAMOUS CELLS OF UNDETERMINED SIGNIFICANCE (ASC-US). jib Electronic Signature Paul Shannon MD Reported: 10/25/2011 Also seen by: IAN Mcmahon (ASCP) Cytology Outreach [facility] ICD-9 Code(s) 622.12 A: 795.01 28 Special Testing Laboratory [address] [facility], [address] [place] [address] HUMAN PAPILLOMAVIRUS TESTING Name: Roel Stephens : 1990 (Age: 21) Sex: F Location: [facility] Soc. Sec. #: [id number] Date Collected: 10/20/2011 Billing #: [id number] Date Received: 10/23/2011 Med. Rec. # [id number] Requisition # [id number] Physician(s): MARYANNE ARAGON MD Source of Specimen: ThinPrep Pap Other Case Numbers: [id number] Results: High Risk NEGATIVE (HPV types 16, 18, 31, 33, 35, 39, 45, 51, 52, 56, 58, 59, 68) Digene Hybrid Capture 2 Electronic Signature * IAN Brar (ASCP) Cytology Outreach [facility] ICD-9 Codes: A: 795.01 Reported: 10/27/2011 [facility] 29 Cytology Laboratory [address], [address] [place] [address] CYTOLOGY REPORT Name: Roel Stephens : 1990 (Age: 20) Sex: F Location: [facility] Soc. Sec. #: [phone] Date Collected: 05/11/2011 Billing #: [id number] Date Received: 05/11/2011 Med. Rec. #: [id number] Requisition # [id number] Physician(s) : MARYANNE ARAGON MD Source of Specimen: ENDOCERVICAL/ECTOCERVICAL THIN PREP Clinical Information: Date of Last Menstrual Period: 04/28 Menstrual History: Regular Hormonal History: OCPs: LoEstrin Dysplasia/Cancer History: HSIL: ANNEMARIE 2 Treatment History: Colposcopy: 10/25 Specimen Adequacy: SATISFACTORY FOR EVALUATION. ADEQUATE ENDOCERVICAL/TRANSFORMATION ZONE. General Categorization: SQUAMOUS ABNORMALITY Descriptive Evaluation: ATYPICAL SQUAMOUS CELLS OF UNDETERMINED SIGNIFICANCE (ASC-US). Comment: PREVIOUS SLIDES REVIEWED ([id number]). Electronic Signature Seun Ac MD Reported: 05/16/2011 Also seen by: IAN Blankenship (ASCP) IAN Bean (ASCP) Cytology Outreach [facility] ICD-9 Code(s) 622.12 A: 795.01 30 Special Testing Laboratory [address] [place] [address], [address] [place] [address] GC / CHLAMYDIA REPORT Name: Roel Stephens : 1990 (Age: 20) Sex: F Location: [facility] Soc. Sec. #: [phone] Date Collected: 05/11/2011 Billing #: [id number] Date Received: 05/11/2011 Med. Rec. # [id number] Requisition # [id number] Physician (s): MARYANNE ARAGON MD Source of Specimen: ThinPrep, APTIMA Results: Neisseria gonorrhoeae NEGATIVE Chlamydia trachomatis NEGATIVE Comment: This analysis was performed using second generation nucleic acid amplification testing (NAAT). Reported: 05/16/2011 Electronic Signature ian Sandoval [facility] Technical Laboratory [facility] ICD-9 Codes: 622.12 31 Special Testing Laboratory [address] [facility], [address] Phone [place] [id number] HUMAN PAPILLOMAVIRUS TESTING Name: Roel Stephens : 1990 (Age: 20) Sex: F Location: [facility] Soc. Sec. #: [phone] Date Collected: 05/11/2011 Billing #: [id number] Date Received: 05/11/2011 Med. Rec. # [id number] Requisition # [id number] Physician(s): MARYANNE ARAGON MD Source of Specimen: ThinPrep Pap Other Case Numbers: [id number] Results: High Risk POSITIVE (HPV types 16, 18, 31, 33, 35 , 39, 45, 51, 52, 56, 58, 59, 68) Digene Hybrid Capture 2 Electronic Signature * Yennifer Sandoval Cytology Outreach [facility] ICD-9 Codes: A: 795.05 Reported: 2010 [facility] 32 [facility]ology Outreach, [facility] [address] [facility], [address] Phone [place] [id number] SURGICAL PATHOLOGY REPORT Name: Roel Stephens Pathology #: [id number] : 1990 (Age: 20) Sex: F Location: [facility] Soc. Sec. #: [phone] Date of Procedure: 05/11/2011 Billing # : [id number] Date Received: 05/11/2011 Med. Rec. # [id number] Requisition #: [id number] Physician(s): MARYANNE ARAGON MD Specimen(s) Received: A: Endocervical curettage B: Cervical biopsy at 11:00 C: Cervical biopsy at 6:00 Clinical Information: ANNEMARIE 2, colpo 10/25, please compare. Loestrin OCP. LMP 04/28, regular. 622.12. Gross Description: Specimen A received in formalin labeled "endocervical curettings " is a 0.25 cc aggregate of mucus and clotted blood which is submitted in toto. (1 block) Specimen B received in formalin labeled "cervical biopsy at 11:00" is a 0.4 cm mcbride-wang irregular fragment of rubbery tissue which is submitted in toto. (1 block) Specimen C received in formalin labeled "cervical biopsy at 6:00" is a 0.4 cm mcbride-wang irregular fragment of rubbery tissue which is submitted in toto. (1 block) jib /KBS Diagnosis: A) ENDOCERVICAL CURETTAGE, UNREMARKABLE ENDOCERVICAL TISSUE. B) CERVICAL BIOPSY AT 11:00, ACUTE AND CHRONIC INFLAMMATION AND REACTIVE EPITHELIAL CHANGES. C) CERVICAL BIOPSY AT 6:00, UNREMARKABLE ECTOCERVICAL TISSUE. Comment: Unlike the previous biopsy ([id number]), no dysplasia is seen in the current specimen. Reported: 05/12/2011 Electronic Signature cf Paul Shannon MD [facility] Outreach Technical Laboratory [facility] ICD-9 Codes: 616.0 33 [facility] [address] [place] [address], [address] [place] [address] SURGICAL PATHOLOGY REPORT Name: Roel Stephens Pathology #: [id number] : 1990 (Age: 20) Sex: F Location: [facility] Soc. Sec. #: [phone] Date of Procedure: 10/31/2010 Billing # : [id number] Date Received: 10/31/2010 Med. Rec. # [id number] Requisition #: [id number] Physician(s): MARYANNE ARAGON MD Specimen(s) Received: A: Cervical biopsy at 10:00 B: Cervical biopsy at 11:00 C: Cervical biopsy at 6:00 D: Endocervical curettage Clinical Information: LGSIL Pap, cannot R/O HGSIL, ANNEMARIE 1-2. 795.4 Gross Description: Specimen A received in formalin labeled "cervical biopsy at 10: 00" is a 0.5 cm mcbride-wang irregular fragment of rubbery tissue which is submitted in toto. (1 block) Specimen B received in formalin labeled "cervical biopsy at 11:00" is a 0.4 cm mcbride-wang irregular fragment of rubbery tissue which is submitted in toto. (1 block) Specimen C received in formalin and labeled "cervical biopsy at 6: 00" are two mcbride-brown fragments of soft tissue varying from 0.4 to 0.5 cm in greatest dimension. Submitted in toto. (1 block) Specimen D received in formalin labeled "endocervical curettings" is a 0.25 cc aggregate of mucus and clotted blood which is submitted in toto. (1 block) jib WXS/MTM Diagnosis: A) CERVIX, 10:00, BIOPSY MODERATE DYSPLASIA (ANNEMARIE 2). B) CERVIX, 11:00, BIOPSY NO SIGNIFICANT PATHOLOGIC CHANGES. C) CERVIX, 6:00, BIOPSY MODERATE DYSPLASIA (ANNEMARIE 2). D) ENDOCERVIX, CURETTAGE NO SIGNIFICANT PATHOLOGIC CHANGES. Comment: Immunohistochemical stains for Ki-67 and [id number] were performed on the 10:00 and 6:00 biopsies to assess the abnormality. The lesion occurs in inflamed and attenuated squamous epithelium , but the immunostains are consistent with the diagnosis. This report may include one or more immunoperoxidase stain results which use analyte-specific reagents. These tests were developed and their performance characteristics determined by [facility]. They have not been cleared or approved by the U.S. Food and Drug Administration. The F.D.A. has determined that such clearance or approval is not necessary. The positive and negative controls have been reviewed by the pathologist and are satisfactory. Reported: 11/01/2010 Electronic Signature lr Seun Ac MD [facility] Laboratory [facility] ICD-9 Codes: 622.10 34 FASTING 35 NEGATIVE FOR CHARITY SPECIES Testing Performed by: [place] [address] 36 NO GROWTH: FINAL REPORT 37 Cytology Laboratory [address] [place] [address], [address] [place] [address] CYTOLOGY REPORT Name: Roel Stephens : 1990 (Age: 20) Sex: F Location: [facility] Soc. Sec. #: [phone] Date Collected: 10/19/2010 Billing #: [id number] Date Received: 10/19/2010 Med. Rec. #: [id number] Requisition # [id number] Physician(s): MARYANNE ARAGON MD Source of Specimen: ENDOCERVICAL/ECTOCERVICAL THIN PREP Clinical Information: Date of Last Menstrual Period: 10/14 Menstrual History: Regular Specimen Adequacy: SATISFACTORY FOR EVALUATION. ADEQUATE ENDOCERVICAL/TRANSFORMATION ZONE. General Categorization: SQUAMOUS ABNORMALITY Descriptive Evaluation: LOW GRADE SQUAMOUS INTRAEPITHELIAL LESION: MILD DYSPLASIA (ANNEMARIE 1), CANNOT EXCLUDE HIGH GRADE DEAN. jib Electronic Signature Seun Perez MD Reported: 10/24/2010 Also seen by: IAN Elder (ASCP) IAN Bean (ASCP) Cytology Outreach [facility] ICD-9 Code(s) V72.31 A: 795.03 38 Special Testing Laboratory [address] [employer], [address] [place] [address] GC / CHLAMYDIA REPORT Name: Kat Roel : 1990 (Age: 20) Sex: F Location: [facility] Soc. Sec. #: [phone] Date Collected: 10/19/2010 Billing #: [id number] Date Received: 10/19/2010 Med. Rec. # [id number] Requisition # [id number] Physician(s): MARYANNE ARAGON MD Source of Specimen: ThinPrep, APTIMA Results: Neisseria gonorrhoeae NEGATIVE Chlamydia trachomatis NEGATIVE Comment: This analysis was performed using second generation nucleic acid amplification testing (NAAT). Reported: 2010 Electronic Signature ky Yennifer [facility] Laboratory [facility] ICD-9 Codes: V72.31 39 POSITIVE FOR GARDNERELLA VAGINALIS 40 NEGATIVE FOR TRICHOMONAS VAGINALIS 41 Recent studies consider the lower limit of 32.0 ng/mL to be a threshold for optimal health. Robert BW. J Nutr. 2005 Nov;135(2):317-22. Performed at: RN - [facility] [address] [id number] Finish Off Operator: Seun Schmitz MD, Phone: [phone] Special Testing Laboratory [address] [place] [address] GC / CHLAMYDIA REPORT Name: Roel Stephens : 1990 (Age: 19) Sex: F Location: [facility] Soc. Sec. #: Date Collected: 03/22/2010 Billing #: [id number] Date Received: 03/22/2010 Requisition # [id number] Physician(s): MARYANNE ARAGON MD Source of Specimen: Urine Results: Neisseria gonorrhoeae NEGATIVE Chlamydia trachomatis NEGATIVE Comment: This analysis was performed using second generation nucleic acid amplification testing (NAAT). Reported: 03/24/2010 Electronic Signature [facility] Judy Cabrera [facility] Technical Laboratory [facility] ICD-9 Codes: 099.53 43 Values >10 mIU/ML considered IMMUNE 44 HBsAg not detected; does not exclude the possibility of exposure to or early acute infections with HBV. 45 PENDING; TEST PERFORMED ON MONDAYS AND THURSDAYS 46 Antibodies to HCV not detected; does not exclude early acute HCV infection. 47 Replaced by DNAPR 48 SPECIMEN SOURCE: CER SPECIMEN SOURCE: CER CALLED THERESA Venegas AT 1146 by LAB.[email or web address] 49 Replaced by DNAPR 50 NEGATIVE FOR CHARITY SPECIES Testing Performed by: [place] [address] 51 POSITIVE FOR GARDNERELLA VAGINALIS 52 NEGATIVE FOR TRICHOMONAS VAGINALIS 53 NORMAL THROAT ARTEM 54 Specimen: [id number] - TESTS: DNAPR, AFFIRM order for dnapr received on 10/01 TEST: DNAPR TEST: AFFIRM 55 NEGATIVE FOR CHARITY SPECIES Testing Performed by: [place] [address] 56 SENT A GEN-PROBE SWAB NOT A URINE OR APTIMA SWAB SPECIMEN FOR TEST THAT WAS ORDERED ([facility] PCR). 57 POSITIVE FOR GARDNERELLA VAGINALIS 58 NEGATIVE FOR TRICHOMONAS VAGINALIS 59 NEGATIVE FOR CHLAMYDIA TRACHOMATIS BY DNA HYBRIDIZATION ASSAY. THIS TEST IS APPROVED FOR OCULAR AND UROGENITAL SITES ONLY. 60 NEGATIVE FOR NEISSERIA GONORRHOEAE BY DNA HYBRIDIZATION ASSAY. THIS METHOD IS APPROVED FOR UROGENITAL SITES ONLY. 61 NEGATIVE FOR CHARITY SPECIES Testing Performed by: [place] [address] 62 POSITIVE FOR GARDNERELLA VAGINALIS 63 NEGATIVE FOR TRICHOMONAS VAGINALIS 64 NEGATIVE FOR CHLAMYDIA TRACHOMATIS BY DNA HYBRIDIZATION ASSAY. THIS TEST IS APPROVED FOR OCULAR AND UROGENITAL SITES ONLY. 65 NEGATIVE FOR NEISSERIA GONORRHOEAE BY DNA HYBRIDIZATION ASSAY. THIS METHOD IS APPROVED FOR UROGENITAL SITES ONLY. 66 labs today Procedures Date CPT Code Description Status 12/21/2017 11830 Brief Emotional/Behav Assessment W/ Scoring Doc Per Completed Standard Inst 01/30/2015 40993 Measure Blood Oxygen Level Single Determination Completed 05/11/2011 92550 Colposcopy W/Biopsy Cervix/Endocervical Curettage Completed 10/28/2010 61023 Colposcopy W/Biopsy Cervix/Endocervical Curettage Completed 09/30/2008 86903 Visual Screening Test Completed 09/30/2008 33167 Screening Hearing Test Completed 07/19/2007 25999 Screening Hearing Test Completed 07/12/2007 65142 Screening Hearing Test Completed Encounters Type Date Location Provider CPT E/M Dx Office Visit 12/20/2016 1:30p [facility] [place] [address] Z87.410 L70.0 E78.2 E55.9 Z68.30 Z01.419 J30.9 Z11.3 Office Visit 07/21/2016 8:00a [facility] [place] [address] J30.9 Office Visit 11/30/2015 10:30a [facility] [place] [address] R63.5 Z68.29 N87.1 L70.0 Z11.3 E55.9 Z01.411 Z23 E63.9 Office Visit 01/30/2015 9:15a [facility] [place] [address] 461.9 Office Visit 11/17/2014 11:00a [facility] [place] [address] 622.12 706.1 V72.31 780.79 268.9 V25.41 Plan of Care Future Appointment(s):12/23/2018 11:00 am - Maryanne Aragon MD at [facility]2017 - Maryanne Aragon MDZ01.419 Encntr for regulatory attorney exam (general) (routine) w/o abn findingsNew Labs:Pap Smear Thin PrepComments:Annual regulatory attorney exam.Annual Pap due to moderate cervical dysplasia through 2030, unless guidelines change. Annual Std testing recommended, declined Folic acid 400 mcg is recommended to help reduce defects in all patients who are sexually active and at risk for . If trying to concieve then 800mcg daily. A women's one daily has adequate amounts. Immunizations reviewed. tdap was 08/2017 Hep A series consideration for travel.recommend flu vax annuallychol mildly elevated 2016, work on diet and recheck in a few [id number] tends to avoid meat admits eating turkeyburger and hamburgers 2-3 times a week discussed eating nuts/beans/ protein sources daily, at every meal. keep in mind, iron calcium and vit d sources. if you feel fatigued, seek care for lab evaluation.cbc was in good range 2015 Healthy Lifestyle Encouraged: Encouraged healthy diet with meats simply prepared, fresh fruits and vegwhen able also simply prepared, whole grains, 3 dairies per day non fat. Recommend all patients consume a source of omega 3 fatty acids daily, such as almonds/walnuts/ground flax seed/olive oil/ fish like salmon,tuna. Encouraged daily exercise 30 - 60 min daily/150min per week. Encouraged at least 2-3 qrts total fluid per day with more for sweaty exercise. Target 7-8 hours of sleep at night. Work on your "happy factors" to decrease stress and enjoy life. Limit your alcohol to under 1 per day, no more than 3 in any one day, no more than 7 per week.Avoid tobacco use. An approach to healthy lifestyle will help reduce your risks for acute and chronic illness and you may enjoy life better! Contraception, pt comfortable with current contraception, combination hormone control pill. Reminded risks for heart attack, stroke, blood clots, etc. 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 Recommend annual pap through 2106M04.0 Acne vulgarisComments:acne---Advised pt to shower daily. Use facial neutrogena soap twice daily to face, back and chest and then dry and apply benzoyl peroxide to acne areas. Will usually get worse before getting better. Will take 6 weeks to improve next step is topical or oral antibiotics, ov if not improving as mkcxzfjmK02.9 Acute upper respiratory infection, unspecifiedComments:URI-- Explained most likely cause is a virus that won't respond to antibiotics. Can expect cough to worsen before it improves, and whole illness course may last up to 3-4 weeks. Please call for increased Shortness of breath, temp >=101, increased cough that's productive of colored sputum, chest pain, or any other concerns that would suggest bacterial chest infection. If you have increasing face pain with nasal discharge that is colored or bloody, we need to consider sinus infection. Please callfor any concerning symptoms. Try using a vaporizer at night to help with mouth dryness and sore throat. May try OTC meds to help relieve symptoms such as [id number] Allergic rhinitis, unspecifiedComments:allergies--Encouraged pt to take allergy meds on daily basis so that they work the best. Use nasal steroid regularly and antihistamine for breakthrough. Call if inadequate control of symptoms. Also helpful to avoid specific allergens if [id number] Body mass index (BMI) 31.0- 31.9, adultComments:obesity, increases your risk for hypertension, diabetes, arthritis, sleep apnea, and premature cardiovascular disease. Please continue to work on weight loss strategies as we have discussed.
[2018-01-03 12:26] VITALS: BP 124/82
--- NOTE | 2018-01-03 12:47 | UC ---
Neck Pain HPI - HPI Summary HPI Summary: 27 year old female with neck pain .(+) NECK PAIN. YESTERDAY PT WAS SITTING AND STRETCHING WHEN SHE MOVED HER NECK SHE FELT A "POP". PAIN RADIATED TO SHOULDER AND JAW. PAIN TODAY MAINLY IN HER NECK. PAINFUL TO MOVE NECK TO THE LEFT. Was at work and sitting when this happened. she "babied" it the rest of the day and today still with neck stiffness [ End ] - History of Current Complaint Chief Complaint: UCUpperExtremity Stated Complaint: NECK PAIN Time Seen by Provider: 01/03/18 12:45 Hx Obtained From: Patient Hx Last Menstrual Period: 12/20/17 Onset/Duration Of Injury/Symptoms: Days - 1 Mechanism Of Injury: No Known Trauma Timing: Intermittent Episodes Pain Intensity: 9 Character: Stiff, Spasmotic Aggravating Factors: Movement Alleviating Factors: Nothing - Allergies/Home Medications Allergies/Adverse Reactions: Allergies Allergy/AdvReac Type Severity Reaction Status Date / Time amoxicillin Allergy Unknown Hives Verified 01/03/18 12:16 Home Medications: Home Medications Cholecalciferol TAB* [Vitamin D TAB*] 1,000 units PO DAILY 01/03/18 [History Confirmed 01/03/18] Cyanocobalamin (Vitamin B-12) [B-12] 1,000 mcg PO DAILY 01/03/18 [History Confirmed 01/03/18] Folic Acid TAB* [Folvite TAB*] DAILY 01/03/18 [History] Ibuprofen TAB* [Advil TAB*] 600 mg PO Q6H PRN 01/03/18 [History Confirmed ] PMH/Surg Hx/FS Hx/Imm Hx Previously Healthy: Yes - Surgical History Surgical History: Yes Surgery Procedure, Year, and Place: T&A as a child. Cyst removed RIGHT wrist - Family History Known Family History: Negative: Blood Disorder - Social History Occupation: Employed Full-time Lives: With Family Alcohol Use: None Substance Use Type: None Smoking Status (MU): Never Smoked Tobacco - Immunization History Most Recent Influenza Vaccination: NONE 2016 Review Of Systems Neurological: Positive: Other - neck pain. Negative: Headache, Weakness, Paresthesia, Numbness All Other Systems Reviewed And Are Negative: Yes Physical Exam Triage Information Reviewed: Yes Appearance: Well-Appearing, No Pain Distress, Well-Nourished Vital Signs: Initial Vital Signs Temp 99.2 F 01/03/18 12:20 Pulse 80 01/03/18 12:20 Resp 16 01/03/18 12:20 BP 124/82 01/03/18 12:20 Pulse Ox 100 01/03/18 12:20 Vital Signs Reviewed: Yes Respiratory Exam: Normal Cardiovascular Exam: Normal Musculoskeletal: Positive: Strength Intact, ROM Limited @ - reduced due to pain rotating to the left down to about 15 %. limited with placing head to shoulder on the left. neg kernig. neg brud. no step off. no sp tenderness. mild paraspinal C5-6 tenderness, left scapulothoracic and trap tenderness. left UE strength 5/5 and sensation intact. strength same b/l . color normal Neurological Exam: Normal Psychological Exam: Normal Skin Exam: Normal Neck Pain Course/Dx - Course Course Of Treatment: i advise no work for 3 days but she declined. since no trauma, red flags and only present for 1 day no xray today but it sx persist then go to ortho and given referral info . start NSAIDs, home PT, prn flexeril ( discussed SE and no driving on med) - Differential Dx/Diagnosis Differential Dx/HQI/PQRI: Arthritis, Sprain, Strain Provider Diagnoses: cervical muscle strain Discharge - Sign-Out/Discharge Documenting (check all that apply): Discharge - Discharge Plan Condition: Good Disposition: HOME Prescriptions: Cyclobenzaprine HCl 5 mg PO QPM PRN #10 tablet PRN Reason: Spasms Ibuprofen TAB* [Motrin TAB* 600 MG] 600 mg PO Q8H PRN #30 tab PRN Reason: Pain Patient Education Materials: Cervical Strain (ED) Referrals: Maryanne Williamson MD [Primary Care Provider] - 4 Days William Barrow MD [Medical Doctor] - If Needed (Orthopedic referral ) Additional Instructions: Please consider looking up on You Tube [employer] Method for cervical neck pain and start exercises. If your symptoms are not improved or worsened then please go to Ortho for follow up - Billing Disposition and Condition Condition: GOOD Disposition: HOME
== END 2018-01-03 13:10 | disposition home or self-care (01) ==
LOC: UCCORT 11:31
DX: S16.1XXA Strain of muscle, fascia and tendon at neck level, initial encounter (principal); X50.0XXA Overexertion from strenuous movement or load, initial encounter; Y93.89 Activity, other specified; Y92.89 Other specified places as the place of occurrence of the external cause; Y99.0 Civilian activity done for income or pay; Z88.0 Allergy status to penicillin
CPT/HCPCS: 99212; G0463